=== PATIENT | female | born 1990 ===

== ENCOUNTER 2024-10-15 09:51 | Outpatient (CLI) | payer OTHER ==
[2024-10-15 10:23] VITALS: BP 134/65; PULSE 92; RESP 16; TEMP 98.4
--- NOTE | 2024-10-30 11:36 | P.MSEPDOC ---
Presenting Problems - Arrival Data Date of Arrival on Unit: 10/15/24 Time of Arrival on Unit: 09:51 Mode of Transport: Ambulatory - Complaint OB-Reason for Admission/Chief Complaint: Other Comment: acute itching hands and feet Medical History - Information : 2 Para: 0 Term: 0 : 0 Abortions: Spontaneous or Elective: 1 Number of Living Children: 0 - Gestational Age Gestational Age by TAE (wks/days): 28 Weeks and 0 Days Review of Systems - Review of Systems Constitutional: No problems Breast: No problems ENT: No problems Cardiovascular: No problems Respiratory: No problems Gastrointestinal: No problems Genitourinary: No problems Musculoskeletal: No problems Neurological: No problems Skin: Rash, Itching Comment: hands,feet,legs Vital Signs - Temperature Temperature: 98.4 F Temperature Source: Oral - Pulse Right Sitting Pulse Rate: 92 Pulse Assessment Method: Automatic Cuff - Respirations Respiratory Rate: 16 Oxygen Delivery Method: Room Air - Blood Pressure Right Arm Sitting Blood Pressure: 134/65 Blood Pressure Mean: 88 Blood Pressure Source: Automatic Cuff Medical Screen Scoring - Uterine Contractions Frequency From (mins): 0 Frequency To (mins): 0 Duration From (seconds): 0 Duration To (seconds): 0 Resting: Soft to palpation - Assessment - Baby A Baseline FHR: 140 Heart Rate - NICHD Category: Category I (Normal) NST: Reactive Physician Notification - Physician Notified Physician Notified Date: 10/15/24 Physician Notified Time: 10:40 Physician: Ramos Roy New Order Received: Yes (d/c follow up within 1 week with provider) Maternal Triage Index - Maternal Triage Index Presenting for scheduled procedure w/no complaint: No - Stat/Priority 1 Stat Priority 1: No - Urgent/Priority 2 Urgent Priority 2: Yes Provider Notified: Ramos Roy Provider Notified Time: 10:40 Criteria Met for Priority 2: 28.0 severe itching in hands and feett Disposition - Disposition OB Disposition: Triage, Discharge to home, Written follow up instructions reviewed Discharge Date: 10/15/24 Discharge Time: 10:43 I agree with the RN Medical Screening Exam: Yes Physician's MSE Comment: I have neither seen nor examined the patient. Case reviewed; plan agreed upon as documented in EMR&OBIX.: Yes Diagnosis: RELATED CONDITIONS, UNSPECIFIED, THIRD TRIMESTER
== END 2024-10-15 10:43 | disposition home or self-care (01) ==
LOC: FBPOP 09:51
PROVIDERS: ATTEND Obstetrics & Gynecology
DX: O26.893 Other specified pregnancy related conditions, third trimester (principal); L29.9 Pruritus, unspecified; Z3A.28 28 weeks gestation of pregnancy
CPT/HCPCS: 59025; 99213